=== PATIENT | female | born 1950 | race Caucasian/White ===

== ENCOUNTER 2016-04-28 18:10 | Emergency (ER) | payer MEDICARE, BC ==
[2016-04-28 18:40] VITALS: RESP 16; TEMP 98.5
[2016-04-28] MEDS ORDERED: diphenhydrAMINE 50 MG/ML 1 ML VIAL IVP STA (19:25)
--- NOTE | 2016-04-28 19:48 | ED ---
General Adult HPI - General Chief complaint: Upper Respiratory Infection Stated complaint: congestion Time Seen by Provider: 04/28/16 19:00 Source: patient, EMS, RN notes reviewed Mode of arrival: EMS Limitations: no limitations - History of Present Illness Initial comments: This a 66-year-old female presents emergency department via EMS chief complaint congestion. Patient states her congestion has been so thick in her throat region that she feels like she is gagging. She states that she had severe rhinorrhea noted. Patient states that she's never had symptoms this bad. Patient has trouble coughing up and clearing her secretions secondary to weakness from chemo treatment from endometrial cancer last year. She started receiving chemo last year in which she lost her voice and generalized weakness. 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 Patient states she does not feel like she is a large amount of chest congestion she has had shortness of breath. She denies chest pain, nausea, vomiting diarrhea constipation. Patient is on oxygen home at nighttime. 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 - Related Data Home Medications Medication Instructions Recorded Confirmed ALPRAZolam [Xanax] 0.125 - 0.25 mg PO BID PRN 04/14/15 04/28/16 Cholecalciferol [Vitamin D3] 5,000 unit PO DAILY 04/14/15 04/28/16 Ferrous Sulfate [Feosol] 325 mg PO DAILY 04/14/15 04/28/16 Aspirin EC [Ecotrin Low Dose] 81 mg PO DAILY 04/28/16 04/28/16 Dexlansoprazole [Dexilant] 60 mg PO DAILY 04/28/16 04/28/16 Riluzole 50mg 50 mg PO BID 04/28/16 04/28/16 Venlafaxine HCl [Effexor] 37.5 mg PO DAILY 04/28/16 04/28/16 Previous Rx's Medication Instructions Recorded Loratadine [Claritin] 10 mg PO DAILY #14 tab 04/28/16 Allergies Allergy/AdvReac Type Severity Reaction Status Date / Time paclitaxel Allergy Unknown Verified 04/28/16 19:08 omeprazole AdvReac Unknown Verified 04/28/16 19:08 norco Allergy difficulty Uncoded 06/25/15 12:30 breathing,combative,"tyl is ok" Review of Systems ROS Statement: Those systems with pertinent positive or pertinent negative responses have been documented in the HPI. ROS Other: All systems not noted in ROS Statement are negative. Past Medical History Past Medical History: Cancer Additional Past Medical History / Comment(s): anemia, recent vag. bldg., recently treated for thrush acl uterine ca chemo induced laryngitis History of Any Multi-Drug Resistant Organisms: None Reported Past Surgical History: Hysterectomy Additional Past Surgical History / Comment(s): bartholin's cyst removed Past Anesthesia/Blood Transfusion Reactions: No Reported Reaction Past Psychological History: Anxiety Additional Psychological History / Comment(s): very anxious around drs. & hospitals Smoking Status: Never smoker Past Alcohol Use History: Rare Past Drug Use History: None Reported - Past Family History Sister(s) Family Medical History: Deep Vein Thrombosis (DVT) General Exam Limitations: no limitations General appearance: alert, in no apparent distress Head exam: Present: atraumatic, normocephalic, normal inspection Eye exam: Present: normal appearance, PERRL, EOMI. Absent: scleral icterus, conjunctival injection, periorbital swelling ENT exam: Present: mucous membranes moist, TM's normal bilaterally, normal external ear exam. Absent: normal oropharynx (Phlegm and congestion noted in posterior pharynx) Neck exam: Present: normal inspection, full ROM. Absent: tenderness, meningismus, lymphadenopathy Respiratory exam: Present: normal lung sounds bilaterally. Absent: respiratory distress, wheezes, rales, rhonchi, stridor Cardiovascular Exam: Present: regular rate, normal rhythm, normal heart sounds. Absent: systolic murmur, diastolic murmur, rubs, gallop, clicks GI/Abdominal exam: Present: soft, normal bowel sounds. Absent: distended, tenderness, guarding, rebound, rigid Neurological exam: Present: alert Skin exam: Present: warm, dry, intact, normal color. Absent: rash Course Vital Signs 04/28/16 18:36 Temperature 98.5 F Pulse Rate 88 Respiratory 16 Rate Blood Pressure 135/73 O2 Sat by Pulse 93 L Oximetry Medical Decision Making - Medical Decision Making 4-year-old female presented for congestion. Patient states she feels much improved after Benadryl. Patient states that secretions have dried up. This most likely is rhinitis ALLERGIC rhinitis nature. Patient will be discharged with Claritin return parameters were discussed. - Lab Data Result diagrams: 04/28/16 19:39 04/28/16 19:39 Lab Results 04/28/16 04/28/16 Range/Units 19:39 19:39 WBC 3.9 (3.8-10.6) k/uL RBC 4.23 (3.80-5.40) m/uL Hgb 13.6 (11.4-16.0) gm/dL Hct 40.2 (34.0-46.0) % MCV 95.0 (80.0-100.0) fL MCH 32.0 (25.0-35.0) pg MCHC 33.7 (31.0-37.0) g/dL RDW 13.2 (11.5-15.5) % Plt Count 140 L (150-450) k/uL Neutrophils % 63 % Lymphocytes % 29 % Monocytes % 4 % Eosinophils % 2 % Basophils % 0 % Neutrophils # 2.5 (1.3-7.7) k/uL Lymphocytes # 1.1 (1.0-4.8) k/uL Monocytes # 0.2 (0-1.0) k/uL Eosinophils # 0.1 (0-0.7) k/uL Basophils # 0.0 (0-0.2) k/uL Sodium 142 (137-145) mmol/L Potassium 4.6 (3.5-5.1) mmol/L Chloride 102 (98-107) mmol/L Carbon Dioxide 32 H (22-30) mmol/L Anion Gap 8 mmol/L BUN 17 (7-17) mg/dL Creatinine 0.50 L (0.52-1.04) mg/dL Est GFR (MDRD) Af Amer >60 (>60 ml/min/1.73 sqM) Est GFR (MDRD) Non-Af >60 (>60 ml/min/1.73 sqM) Glucose 102 H (74-99) mg/dL Calcium 10.3 H (8.4-10.2) mg/dL Total Bilirubin 0.7 (0.2-1.3) mg/dL AST 25 (14-36) U/L ALT 37 (9-52) U/L Alkaline Phosphatase 57 (38-126) U/L Total Protein 7.1 (6.3-8.2) g/dL Albumin 4.5 (3.5-5.0) g/dL Disposition Clinical Impression: Rhinitis, Congestion of throat Disposition: HOME SELF-CARE Condition: Stable Instructions: Allergies (ED) Additional Instructions: Please return to the Emergency Department if symptoms worsen or any other concerns. Prescriptions: Loratadine [Claritin] 10 mg PO DAILY #14 tab Time of Disposition: 20:49
[2016-04-28 19:53] LABS: Basophils % (A) 0 %; CH 31.6; CHCM 33.4; Eosinophils # (A) 0.1 k/uL (0-0.7); Eosinophils % (A) 2 %; HCT 40.2 % (34.0-46.0); HDW 2.61; HGB 13.6 gm/dL (11.4-16.0); Luc # (Auto) 0.07; Luc % (Auto) 2; Lymphocytes # (A) 1.1 k/uL (1.0-4.8); Lymphocytes % (A) 29 %; MCHC 33.7 g/dL (31.0-37.0); Mean Platelet Volume 8.4; Monocytes # (A) 0.2 k/uL (0-1.0); Monocytes % (A) 4 %; Neutrophils # (A) 2.5 k/uL (1.3-7.7); Neutrophils % (A) 63 %; RBC 4.23 m/uL (3.80-5.40); RDW 13.2 % (11.5-15.5); WBC 3.9 k/uL (3.8-10.6); WBC (Perox) 3.78
--- NOTE | 2016-04-28 20:05 | XR ---
EXAMINATION TYPE: XR chest 2V DATE OF EXAM: 04/28/2016 8:00 PM COMPARISON: Chest radiograph dated 04/27/2016 HISTORY: Cough, congestion, and sore throat. History of ALS, chemotherapy-induced laryngitis and unsp ecified cancer. TECHNIQUE: Frontal and lateral views of the chest are obtained. FINDINGS: There is no focal air space opacity, pleural effusion, or pneumothorax seen. The cardiac silhouette size is within normal limits. The osseous structures are intact. IMPRESSION: No acute cardiopulmonary process, unchanged from the prior exam.
[2016-04-28 20:08] LABS: ALT 37 U/L (9-52); AST 25 U/L (14-36); Alkaline Phosphatase 57 U/L (38-126); Anion Gap 8 mmol/L; Blood Urea Nitrogen 17 mg/dL (7-17); Calcium 10.3 mg/dL (8.4-10.2); Carbon Dioxide 32 mmol/L (22-30); Chloride 102 mmol/L (98-107); Glucose 102 mg/dL (74-99); Non-African American GFR(MDRD) >60 (>60 ml/min/1.73 sqM); Potassium 4.6 mmol/L (3.5-5.1); Sodium 142 mmol/L (137-145); Total Bilirubin 0.7 mg/dL (0.2-1.3); Total Protein 7.1 g/dL (6.3-8.2)
--- NOTE | 2016-04-28 20:10 | XR ---
EXAMINATION TYPE: XR soft tissue neck DATE OF EXAM: 04/28/2016 8:00 PM COMPARISON: Chest radiograph from earlier on the same day of 04/28/2016. HISTORY: Cough, congestion, sore throat. TECHNIQUE: Frontal and lateral views of the neck soft tissues were obtained. FINDINGS: There is straightening of the usual cervical lordosis. Minimal degenerative changes are josefina reciated of the lower cervical spine displayed is uncovertebral hypertrophy and marginal osteophytes. There is no prevertebral soft tissue swelling noted. Airway is patent. Valleculae and piriform sinus es are well aerated. No radiopaque foreign body is seen. Visualized lung apices are grossly unremarka ble. Visualized paranasal sinuses appear well aerated. Multiple dental fillings are seen. Nasal septu m is midline. IMPRESSION: Patency of the nasopharynx, oropharynx and hypopharynx. No prevertebral soft tissue swell ing. Unremarkable exam.
[2016-04-28 21:17] VITALS: BP 148/74; PULSE 78
== END 2016-04-28 21:16 | disposition home or self-care (01) ==
LOC: EC 18:10
DX: J31.0 Chronic rhinitis (principal); R09.89 Other specified symptoms and signs involving the circulatory and respiratory systems; R53.1 Weakness; Z79.82 Long term (current) use of aspirin; Z79.899 Other long term (current) drug therapy; Z88.5 Allergy status to narcotic agent; Z88.8 Allergy status to other drugs, medicaments and biological substances; F41.9 Anxiety disorder, unspecified; Z85.42 Personal history of malignant neoplasm of other parts of uterus; Z92.21 Personal history of antineoplastic chemotherapy
CPT/HCPCS: 36415; 80053; 85025; 87040; 70360; 71020; 99284; 96374; J1200

== ENCOUNTER 2016-05-21 21:45 | Emergency (ER) | payer MEDICARE, BC ==
[2016-05-21] MEDS ORDERED: LORATADINE 10 MG TAB PO STA (23:52)
--- NOTE | 2016-05-21 23:56 | XR ---
EXAM: XR Chest, 2 Views. CLINICAL HISTORY: Reason: cough TECHNIQUE: Frontal and lateral views of the chest. COMPARISON: No relevant prior studies available. FINDINGS: Lungs: Unremarkable. No consolidation. Pleural space: Unremarkable. No pneumothorax. Heart: Cardiomegaly. Mediastinum: Unremarkable. Bones/joints: Multilevel degenerative changes of the spine. IMPRESSION: Cardiomegaly.
--- NOTE | 2016-05-22 00:34 | ED ---
Recheck HPI - General Chief Complaint: Recheck/Abnormal Lab/Rx Stated Complaint: ALS/Choking Time Seen by Provider: 05/21/16 22:26 Source: patient Mode of arrival: ambulatory Limitations: no limitations - History of Present Illness Initial Comments: This patient is a 66-year-old woman who presents with complaint that she is having difficulty handling her own secretions. She states that she is having difficulty with clearing these by coughing. The patient is currently being worked up for the problem of dysphasia, suspected to have a component of ALS, though possibly as a sequela of cancer therapy. The patient was seen here approximately one month ago for similar difficulty with handling secretions, but has not had much trouble in the interval. The patient believes she is having postnasal drip. The last time she was in a ended up giving her Benadryl and she did go home feeling better. The patient for the most part communicates by writing board. Her did assist in giving some history. The patient does not complain of misha shortness of breath. She is not having chest pain, fever or chills. She does not have the sensation of productive cough, but rather of postnasal drip or possibly saliva. MD Complaint: other -: hour(s) - Related Data Home Medications Medication Instructions Recorded Confirmed ALPRAZolam [Xanax] 0.125 - 0.25 mg PO BID PRN 04/14/15 04/28/16 Cholecalciferol [Vitamin D3] 5,000 unit PO DAILY 04/14/15 04/28/16 Ferrous Sulfate [Feosol] 325 mg PO DAILY 04/14/15 04/28/16 Aspirin EC [Ecotrin Low Dose] 81 mg PO DAILY 04/28/16 04/28/16 Dexlansoprazole [Dexilant] 60 mg PO DAILY 04/28/16 04/28/16 Riluzole 50mg 50 mg PO BID 04/28/16 04/28/16 Venlafaxine HCl [Effexor] 37.5 mg PO DAILY 04/28/16 04/28/16 Previous Rx's Medication Instructions Recorded Loratadine [Claritin] 10 mg PO DAILY #14 tab 04/28/16 Cetirizine HCl [Zyrtec Liquid] 10 mg PO DAILY PRN #200 ml 05/22/16 Glycopyrrolate [Robinul] 1 mg PO BID PRN #20 tablet 05/22/16 Allergies Allergy/AdvReac Type Severity Reaction Status Date / Time paclitaxel Allergy Unknown Verified 05/21/16 22:01 omeprazole AdvReac Unknown Verified 05/21/16 22:01 norco Allergy difficulty Uncoded 05/21/16 22:01 breathing,combative,"tyl is ok" Review of Systems ROS Statement: Those systems with pertinent positive or pertinent negative responses have been documented in the HPI. ROS Other: All systems not noted in ROS Statement are negative. Constitutional: Denies: fever, chills Eyes: Denies: vision change ENT: Reports: other (Postnasal drip). Denies: throat pain Respiratory: Reports: cough. Denies: dyspnea, wheezes, hemoptysis Cardiovascular: Denies: chest pain, palpitations, syncope Gastrointestinal: Denies: abdominal pain, vomiting Musculoskeletal: Denies: back pain Past Medical History Past Medical History: Cancer Additional Past Medical History / Comment(s): anemia, recent vag. bldg., recently treated for thrush acl uterine ca chemo induced laryngitis History of Any Multi-Drug Resistant Organisms: None Reported Past Surgical History: Hysterectomy Additional Past Surgical History / Comment(s): bartholin's cyst removed Past Anesthesia/Blood Transfusion Reactions: No Reported Reaction Past Psychological History: Anxiety Additional Psychological History / Comment(s): very anxious around drs. & hospitals Smoking Status: Never smoker Past Alcohol Use History: Rare Past Drug Use History: None Reported - Past Family History Sister(s) Family Medical History: Deep Vein Thrombosis (DVT) General Exam Limitations: no limitations General appearance: alert Head exam: Present: atraumatic, normocephalic Eye exam: Present: normal appearance. Absent: scleral icterus, conjunctival injection ENT exam: Present: normal oropharynx, mucous membranes moist Neck exam: Present: normal inspection, full ROM Respiratory exam: Present: normal lung sounds bilaterally. Absent: respiratory distress, wheezes, rales, rhonchi, stridor, decreased breath sounds, prolonged expiratory Cardiovascular Exam: Present: regular rate, normal rhythm, normal heart sounds. Absent: systolic murmur, diastolic murmur, rubs, gallop GI/Abdominal exam: Present: soft. Absent: tenderness Extremities exam: Absent: pedal edema Neurological exam: Present: alert. Absent: CN II-XII intact Skin exam: Present: warm, dry, intact, normal color. Absent: rash Course Vital Signs 05/21/16 05/22/16 05/22/16 21:55 00:18 01:59 Temperature 98.8 F 98.3 F 98.5 F Pulse Rate 84 78 90 Respiratory 20 18 18 Rate Blood Pressure 125/74 138/79 135/80 O2 Sat by Pulse 93 L 94 L 93 L Oximetry 05/22/16 02:46 Temperature Pulse Rate Respiratory 20 Rate Blood Pressure O2 Sat by Pulse Oximetry Medical Decision Making - Medical Decision Making Patient is a 66-year-old woman having cough and feeling of choking due to which she believes is postnasal drip. Literature search does show these known problems of ALS. We did try dose of antihistamine that did not appear to make a difference. The patient then had Glycopyrrolate which she states is did give her some relief, and then much better relief after a second dose. She did have a chest x-ray that does not show any evidence of aspiration. The patient is feeling better following therapy and would like to go home. We'll prescribe Glycopyrrolate appear late that she may try if the symptoms return, and she is urged to follow. We discussed return parameters. Disposition Clinical Impression: Rhinorrhea, Sialorrhea Disposition: HOME SELF-CARE Condition: Good Instructions: Rhinosinusitis (ED), Sialorrhea (ED) Prescriptions: Cetirizine HCl [Zyrtec Liquid] 10 mg PO DAILY PRN #200 ml PRN Reason: cough Glycopyrrolate [Robinul] 1 mg PO BID PRN #20 tablet PRN Reason: Cough Referrals: Torey Rudolph MD [Primary Care Provider] - 1-2 days
[2016-05-22] MEDS ORDERED: GLYCOPYRROLATE 0.2 MG/ML 2 ML VIAL IVP STA (00:36)
[2016-05-22] MEDS ORDERED: GLYCOPYRROLATE 0.2 MG/ML 2 ML VIAL IM STA ×2 (00:37→01:50)
[2016-05-22 02:01] VITALS: BP 135/80; PULSE 90; TEMP 98.5
[2016-05-22 02:47] VITALS: RESP 20
== END 2016-05-22 02:30 | disposition home or self-care (01) ==
LOC: EC 21:45
DX: J34.89 Other specified disorders of nose and nasal sinuses (principal); K11.7 Disturbances of salivary secretion; R05 Cough; D64.9 Anemia, unspecified; F41.9 Anxiety disorder, unspecified; Z85.42 Personal history of malignant neoplasm of other parts of uterus; Z79.82 Long term (current) use of aspirin; Z88.8 Allergy status to other drugs, medicaments and biological substances; Z88.5 Allergy status to narcotic agent; Z79.899 Other long term (current) drug therapy
CPT/HCPCS: 71020; 96372; 99283

== ENCOUNTER → 2016-06-24 | Outpatient (CLI) | payer MEDICARE, BC ==
[2016-06-24 13:12] LABS: Blood Urea Nitrogen 18 mg/dL (7-17); Non-African American GFR(MDRD) >60 (>60 ml/min/1.73 sqM)
--- NOTE | 2016-06-24 13:56 | CT ---
EXAMINATION TYPE: CT ChestAbdPelvis w con DATE OF EXAM: 06/24/2016 1:43 PM COMPARISON: Previous study dated 11/16/2015. HISTORY: Patient has no complaints at time of study. Follow up study for known endometrial CA. CT DLP: 663.9 mGycm Automated exposure control for dose reduction was used. TECHNIQUE: Helical acquisition through the abdomen and pelvis was obtained without oral contrast but following the intravenous administration of 100 mL of Omnipaque 300. The data was formatted in the a xial, coronal and sagittal projections. FINDINGS: There is dependent atelectasis in the dependent portions of both lungs. The lungs are other chirinos clear. Enhancing 9.9 x 16.0 mm right paratracheal mass is again identified. Previously this was measured at 10.4 x 15.3 mm. There is no significant axillary, internal mammary, mediastinal or hilar adenopathy. There is no pleu ral or pericardial fluid. The heart is enlarged. Within the abdomen, there is a prominent Chris's lobe of the liver. There is mild fatty infiltration of the liver. The spleen and gallbladder are normal. The right adrenal gland is normal. There are is a 9.4 mm left adrenal mass. Both kidneys demonstrate function and appear morphologically normal. The pancreas is unremarkable. There is no significant retroperitoneal, iliac or inguinal adenopathy. The uterus and ovaries are not visualized. The bladder is unremarkable. There are scattered diverticula within the sigmoid colon. I do not see radiographic evidence of diver ticulitis. Small bowel loops are normal. There is no free fluid and no free air identified. There is hypertrophic spondylosis within the dorsal spine. There is degenerative disc disease and fac et arthropathy L5-S1. No bony destructive lesion is seen. IMPRESSION: 1. STABLE RIGHT PARATRACHEAL MASS. 2. NO DEFINITE EVIDENCE OF RECURRENT OR METASTATIC DISEASE. 3. STABLE 9.4 MM LEFT ADRENAL MASS. 4. DEGENERATIVE CHANGE WITHIN THE SPINE.
== END | disposition home or self-care (01) ==
LOC: RADCTMAIN 12:15
PROVIDERS: ATTEND Internal Medicine Hematology & Oncology
DX: R22.1 Localized swelling, mass and lump, neck (principal); C54.1 Malignant neoplasm of endometrium; E27.8 Other specified disorders of adrenal gland; Z88.8 Allergy status to other drugs, medicaments and biological substances
CPT/HCPCS: 82565; 84520; 71260; 74177; 36415; Q9967

== ENCOUNTER → 2016-06-27 | Outpatient (CLI) | payer MEDICARE, BC ==
--- NOTE | 2016-06-28 11:48 | MM ---
Reason for exam: screening (asymptomatic). Last mammogram was performed 1 year ago. History: Patient is postmenopausal and has history of other cancer at age 65. Family history of breast cancer in maternal aunt. Physical Findings: A clinical breast exam by your physician is recommended on an annual basis and results should be correlated with mammographic findings. MG Screening Mammo w CAD Bilateral CC and MLO view(s) were taken. Prior study comparison: June 25, 2015, bilateral MG 3d screening mammo w/cad. June 26, 2002, bilateral screening mammogram. There are scattered fibroglandular densities. There is no discrete abnormality. No significant changes when compared with prior studies. ASSESSMENT: Negative, BI-RAD 1 RECOMMENDATION: Routine screening mammogram of both breasts in 1 year.
== END | disposition home or self-care (01) ==
LOC: RADMAMWWP 06:56
PROVIDERS: ATTEND Family Medicine
DX: Z12.31 Encounter for screening mammogram for malignant neoplasm of breast (principal)

== ENCOUNTER 2016-11-01 04:08 | Inpatient (IN) | payer MEDICARE, BC ==
[2016-11-01] MEDS ORDERED: IPRATROPIUM-ALBUTEROL 3 ML NEB INHALATION STA (04:12)
[2016-11-01 04:40] LABS: Basophils % (A) 0 %; CH 31.3; CHCM 32.9; Eosinophils # (A) 0.1 k/uL (0-0.7); Eosinophils % (A) 2 %; HCT 44.7 % (34.0-46.0); HDW 2.48; HGB 14.4 gm/dL (11.4-16.0); Luc # (Auto) 0.08; Luc % (Auto) 1; Lymphocytes # (A) 1.4 k/uL (1.0-4.8); Lymphocytes % (A) 26 %; MCH 30.9 pg (25.0-35.0); MCHC 32.3 g/dL (31.0-37.0); MCV 95.7 fL (80.0-100.0); Mean Platelet Volume 8.2; Monocytes # (A) 0.3 k/uL (0-1.0); Monocytes % (A) 5 %; Neutrophils # (A) 3.5 k/uL (1.3-7.7); Neutrophils % (A) 66 %; RBC 4.67 m/uL (3.80-5.40); RDW 13.8 % (11.5-15.5); WBC 5.3 k/uL (3.8-10.6); WBC (Perox) 5.59
[2016-11-01 04:44] LABS: ALT 35 U/L (9-52); AST 28 U/L (14-36); Alkaline Phosphatase 60 U/L (38-126); Blood Urea Nitrogen 21 mg/dL (7-17); Calcium 10.1 mg/dL (8.4-10.2); Chloride 97 mmol/L (98-107); Glucose 119 mg/dL (74-99); Magnesium 1.9 mg/dL (1.6-2.3); Non-African American GFR(MDRD) >60 (>60 ml/min/1.73 sqM); Sodium 143 mmol/L (137-145); Total Bilirubin 0.5 mg/dL (0.2-1.3); Total Protein 6.4 g/dL (6.3-8.2)
[2016-11-01] MEDS: SODIUM CHLORIDE 0.9% 1,000 ML IV STA ×2 (04:46→06:56)
[2016-11-01 04:47] LABS: Partial Thromboplastin Time 22.4 sec (22.0-30.0)
--- NOTE | 2016-11-01 04:49 | ED ---
General Adult HPI - General Stated complaint: BRINDA Time Seen by Provider: 11/01/16 04:12 Source: patient, EMS, RN notes reviewed, old records reviewed Mode of arrival: EMS Limitations: language barrier - History of Present Illness Initial comments: This is a 58-year-old female date ER for evaluation. Patient presents today for evaluation regarding shortness of breath. Patient has is history of ALS, is on hospice. Patient states that she is having difficulty breathing, difficulty clearing secretions. Patient does do her own suctioning. No known fevers. No pain. At this time upon arrival to emergency room patient states her symptoms are improved - Related Data Home Medications Medication Instructions Recorded Confirmed Aspirin EC [Ecotrin Low Dose] 81 mg PO DAILY 04/28/16 11/01/16 Venlafaxine HCl [Effexor] 37.5 mg PO DAILY 04/28/16 11/01/16 Previous Rx's Medication Instructions Recorded Amoxic-Pot Clav 875-125Mg 1 each PO DAILY #5 tab 11/02/16 [Augmentin 875-125] LORazepam [Ativan] 1 mg PO Q4H #30 tab 11/02/16 MORPHINE ORAL SOLN 20mg/mL 0.25 ml PEG/G-TUBE Q3HR PRN #1 11/02/16 [Roxanol Oral Soln Conc 20MG/ML] Scopolamine 1.5MG/72Hr Patch 1 patch TRANSDERM Q72H #10 patch 11/02/16 [TransDerm Scop] Allergies Allergy/AdvReac Type Severity Reaction Status Date / Time hydrocodone [From [place]] Allergy Unknown Verified 11/01/16 07:16 omeprazole Allergy Unknown Verified 11/01/16 07:16 paclitaxel Allergy Unknown Verified 11/01/16 07:15 Review of Systems ROS Statement: Those systems with pertinent positive or pertinent negative responses have been documented in the HPI. ROS Other: All systems not noted in ROS Statement are negative. Past Medical History Past Medical History: Cancer Additional Past Medical History / Comment(s): anemia, recent vag. bldg., recently treated for thrush acl uterine ca chemo induced laryngitis , ALS History of Any Multi-Drug Resistant Organisms: None Reported Past Surgical History: Hysterectomy Additional Past Surgical History / Comment(s): bartholin's cyst removed Past Anesthesia/Blood Transfusion Reactions: No Reported Reaction Past Psychological History: Anxiety Smoking Status: Never smoker Past Alcohol Use History: Rare Past Drug Use History: None Reported - Past Family History Sister(s) Family Medical History: Deep Vein Thrombosis (DVT) Mother Family Medical History: No Reported History Additional Family Medical History / Comment(s): Mother is healthy and is 87yrs old. Father Family Medical History: Coronary Artery Disease (CAD), CVA/TIA, Musculoskeletal Disorder, Neurologic Disorder Additional Family Medical History / Comment(s): Father had parkinson's, 4 vessel CABG, CVA. General Exam Limitations: language barrier General appearance: alert, in no apparent distress, anxious Head exam: Present: atraumatic, normocephalic, normal inspection Eye exam: Present: normal appearance, PERRL, EOMI. Absent: scleral icterus, conjunctival injection, periorbital swelling ENT exam: Present: normal exam, mucous membranes moist Neck exam: Present: normal inspection. Absent: tenderness, meningismus, lymphadenopathy Respiratory exam: Present: normal lung sounds bilaterally. Absent: respiratory distress, wheezes, rales, rhonchi, stridor Cardiovascular Exam: Present: regular rate, normal rhythm, normal heart sounds. Absent: systolic murmur, diastolic murmur, rubs, gallop, clicks GI/Abdominal exam: Present: soft, normal bowel sounds. Absent: distended, tenderness, guarding, rebound, rigid Extremities exam: Present: normal inspection, full ROM, normal capillary refill. Absent: tenderness, pedal edema, joint swelling, calf tenderness Back exam: Present: normal inspection Neurological exam: Present: alert, oriented X3, CN II-XII intact Psychiatric exam: Present: normal affect, normal mood Skin exam: Present: warm, dry, intact, normal color. Absent: rash Course Vital Signs 11/01/16 11/01/16 11/01/16 04:10 04:30 04:44 Temperature 97.7 F Pulse Rate 102 H 84 85 Respiratory 18 Rate Blood Pressure 140/72 O2 Sat by Pulse 96 Oximetry 11/01/16 11/01/16 05:21 06:30 Temperature 98.3 F Pulse Rate 87 88 Respiratory 20 20 Rate Blood Pressure 144/70 135/64 O2 Sat by Pulse 100 97 Oximetry - Reevaluation(s) Reevaluation #1: Patient does have improvement with breathing control, respiratory was able to provide patient with relief with deep suctioning EKG Findings - EKG Comments: EKG Findings:: EKG shows normal sinus rate of 84, FL 140, QRS 76, QTC 420 Medical Decision Making - Medical Decision Making 66 female here for evaluation shortness of breath and cough, history of ALS, patient does have positive pneumonia likely aspiration, patient placed on IV antibiotics were mid-upper breathing treatments, monitoring of cardiopulmonary s - Lab Data Result diagrams: 11/01/16 04:14 11/01/16 04:14 Lab Results 11/01/16 11/01/16 11/01/16 Range/Units 04:14 04:14 04:14 WBC 5.3 (3.8-10.6) k/uL RBC 4.67 (3.80-5.40) m/uL Hgb 14.4 (11.4-16.0) gm/dL Hct 44.7 (34.0-46.0) % MCV 95.7 (80.0-100.0) fL MCH 30.9 (25.0-35.0) pg MCHC 32.3 (31.0-37.0) g/dL RDW 13.8 (11.5-15.5) % Plt Count 139 L (150-450) k/uL Neutrophils % 66 % Lymphocytes % 26 % Monocytes % 5 % Eosinophils % 2 % Basophils % 0 % Neutrophils # 3.5 (1.3-7.7) k/uL Lymphocytes # 1.4 (1.0-4.8) k/uL Monocytes # 0.3 (0-1.0) k/uL Eosinophils # 0.1 (0-0.7) k/uL Basophils # 0.0 (0-0.2) k/uL PT (9.0-12.0) sec INR (<1.2) APTT (22.0-30.0) sec Sodium 143 (137-145) mmol/L Potassium 5.0 (3.5-5.1) mmol/L Chloride 97 L (98-107) mmol/L Carbon Dioxide 40 H* (22-30) mmol/L Anion Gap 6 mmol/L BUN 21 H (7-17) mg/dL Creatinine 0.41 L (0.52-1.04) mg/dL Est GFR (MDRD) Af Amer >60 (>60 ml/min/1.73 sqM) Est GFR (MDRD) Non-Af >60 (>60 ml/min/1.73 sqM) Glucose 119 H (74-99) mg/dL Calcium 10.1 (8.4-10.2) mg/dL Magnesium 1.9 (1.6-2.3) mg/dL Total Bilirubin 0.5 (0.2-1.3) mg/dL AST 28 (14-36) U/L ALT 35 (9-52) U/L Alkaline Phosphatase 60 (38-126) U/L Total Creatine Kinase 20 L (30-135) U/L CK-MB (CK-2) 2.2 (0.0-2.4) ng/mL CK-MB (CK-2) Rel Index 11.0 Troponin I <0.012 (0.000-0.034) ng/mL NT-Pro-B Natriuret Pep pg/mL Total Protein 6.4 (6.3-8.2) g/dL Albumin 4.0 (3.5-5.0) g/dL 11/01/16 11/01/16 Range/Units 04:14 04:14 WBC (3.8-10.6) k/uL RBC (3.80-5.40) m/uL Hgb (11.4-16.0) gm/dL Hct (34.0-46.0) % MCV (80.0-100.0) fL MCH (25.0-35.0) pg MCHC (31.0-37.0) g/dL RDW (11.5-15.5) % Plt Count (150-450) k/uL Neutrophils % % Lymphocytes % % Monocytes % % Eosinophils % % Basophils % % Neutrophils # (1.3-7.7) k/uL Lymphocytes # (1.0-4.8) k/uL Monocytes # (0-1.0) k/uL Eosinophils # (0-0.7) k/uL Basophils # (0-0.2) k/uL PT 10.0 (9.0-12.0) sec INR 1.0 (<1.2) APTT 22.4 (22.0-30.0) sec Sodium (137-145) mmol/L Potassium (3.5-5.1) mmol/L Chloride (98-107) mmol/L Carbon Dioxide (22-30) mmol/L Anion Gap mmol/L BUN (7-17) mg/dL Creatinine (0.52-1.04) mg/dL Est GFR (MDRD) Af Amer (>60 ml/min/1.73 sqM) Est GFR (MDRD) Non-Af (>60 ml/min/1.73 sqM) Glucose (74-99) mg/dL Calcium (8.4-10.2) mg/dL Magnesium (1.6-2.3) mg/dL Total Bilirubin (0.2-1.3) mg/dL AST (14-36) U/L ALT (9-52) U/L Alkaline Phosphatase (38-126) U/L Total Creatine Kinase (30-135) U/L CK-MB (CK-2) (0.0-2.4) ng/mL CK-MB (CK-2) Rel Index Troponin I (0.000-0.034) ng/mL NT-Pro-B Natriuret Pep 37 pg/mL Total Protein (6.3-8.2) g/dL Albumin (3.5-5.0) g/dL - Radiology Data Radiology results: report reviewed (Chest x-ray is positive for pneumonia), image reviewed Disposition Clinical Impression: Nosocomial pneumonia Disposition: ADMITTED IP TO THIS [facility] Condition: Fair
[2016-11-01 04:50] LABS: Anion Gap 6 mmol/L
[2016-11-01 04:56] LABS: Carbon Dioxide 40 mmol/L (22-30); Creatine Kinase 20 U/L (30-135)
[2016-11-01 05:09] LABS: Creatine Kinase MB 2.2 ng/mL (0.0-2.4); Troponin I <0.012 ng/mL (0.000-0.034)
--- NOTE | 2016-11-01 06:10 | XR ---
PROCEDURE: FILM CXR 2 VIEWS HISTORY: 66-year-old female with difficulty breathing. COMPARISON: Chest radiograph 05/21/2016 TECHNIQUE: Frontal and lateral views of the chest were obtained. FINDINGS: Limited by positioning. Mildly enlarged, but stable, cardiac silhouette. Stable mediastinal silhouette. Left lower lobe consolidation, may be due to pneumonia in the appropriate clinical setting. No evidence of effusion or pneumothorax. Multilevel degenerative changes in the spine. IMPRESSION: Mildly enlarged, but stable, cardiac silhouette. Left lower lobe consolidation, may be due to pneumonia in the appropriate clinical setting. Followup to clearing.
[2016-11-01] MEDS ORDERED: PNEUMONIA PROTOCOL UTILIZED 1 EACH MISC PO PRN (06:35)
[2016-11-01] MEDS ORDERED: LEVOFLOXACIN 750MG-D5W PMX 750 MG in DEXTROSE/WATER 1 150ML.BAG IVPB STA (06:35)
[2016-11-01] MEDS ORDERED: PIPERACILLIN-TAZOBACTAM 3.375 GM in DEXTROSE/WATER 1 50ML.BAG IVPB STA (06:35)
[2016-11-01] MEDS: SODIUM CHLORIDE 0.9% 1,000 ML IV SCH ×2 (06:56→17:13)
[2016-11-01] MEDS: IPRATROPIUM-ALBUTEROL 3 ML NEB INHALATION SCH ×4 (08:57→19:58)
[2016-11-01] MEDS ORDERED: ENOXAPARIN 40 MG/0.4 ML SYRINGE SQ SCH ×2 (09:00→09:15)
[2016-11-01 11:08] VITALS: BMI 24.0
[2016-11-01 11:30] LABS: ABG Base Excess 14.6 mmol/L; ABG HCO3 41 mmol/L (21-25); ABG PCO2 76 mmHg (35-45); ABG PH 7.35 (7.35-7.45); ABG PO2 128 mmHg (83-108); ABG TCO2 43 mmol/L (19-24)
[2016-11-01] MEDS: VENLAFAXINE HCL 37.5 MG TAB PO SCH (12:34)
--- NOTE | 2016-11-01 13:36 | P.CNPUL ---
History of Present Illness Consult date: 11/01/16 Reason for consult: dyspnea, pneumonia History of present illness: A 66-year-old female patient with established diagnoses of amyotrophic lateral sclerosis whereas been maintained on a AVAPS respirator over the past 6 months. Apparently the patient's condition has been gradually getting worse and she has developed progressive no muscular weakness. Currently she has a very weak cough. She is unable to ambulate. She is unable to talk. Her swallowing is also suspected and the patient is being fed via PEG tube. The patient was brought to the burst department yesterday having increased shortness of breath. She was also having some increased lethargy and weakness and she did not have any fever. The chest x-ray was done and showed possibility of a left lower lobe pneumonia. She does not have any witnessed aspiration. She was started on IV antibiotics. A pulmonary consultation was also requested. She is awake and alert. She cannot talk. As such no further information can be obtained from her. My understanding is that the patient was in hospice at one point. I ordered a blood gas and I show evidence of compensated chronic hypercapnic respiratory failure with a pH of 7.35 and a pCO2 of 76 and pO2 of 128 and this was done and FiO2 of 32%. No leukocytosis. Review of Systems Constitutional: Reports weakness Eyes: denies blurred vision, denies bulging eye, denies decreased vision Ears: deny: decreased hearing Ears, nose, mouth and throat: Reports as per HPI Cardiovascular: Reports as per HPI, Reports shortness of breath Respiratory: Reports dyspnea, Reports respiratory infections Gastrointestinal: Reports as per HPI Genitourinary: Reports as per HPI Musculoskeletal: Reports gait dysfunction Musculoskeletal: absent: ankle pain, ankle stiffness, ankle swelling Integumentary: Denies pruritus, Denies rash Neurological: Reports as per HPI, Reports gait dysfunction, Reports lack of coordination, Reports motor disturbance, Reports spasticity, Reports weakness Psychiatric: Denies anxiety, Denies depression Endocrine: Denies fatigue, Denies weight change Hematologic/Lymphatic: Reports as per HPI Allergic/Immunologic: Reports as per HPI Past Medical History Past Medical History: Cancer Additional Past Medical History / Comment(s): ALS, POST MENOPAUSAL BLEEDING- ENDOMETRIAL CANCER WITH CHEMO/RADIATION A YEAR AGO-DONE AT [facility], HAS PEG TUBE-ABLE TO EAT ALITTLE-FINELY PUREED FOOD/PILLS CRUSHED OR IN LIQUID FORM/SHE DOES NOT DRINK FLUIDS AT ALL-SWALLOW DIFFICULTIES, RECENT HOSPICE-USING [facility], DIVERTICULAR DX, MILD GASTRITIS, PT ALWAYS FEELS VERY WARM. History of Any Multi-Drug Resistant Organisms: None Reported Past Surgical History: Hysterectomy Additional Past Surgical History / Comment(s): bartholin's cyst removed, EGD/ COLONOSCOPY, D&C/HYSTEROSCOPY, PEG TUBE Past Anesthesia/Blood Transfusion Reactions: No Reported Reaction Additional Past Anesthesia/Blood Transfusion Reaction / Comment(s): PT IS SLOW TO AWAKEN AFTER ANESTHESIA Smoking Status: Never smoker - Past Family History Sister(s) Family Medical History: Deep Vein Thrombosis (DVT) Mother Family Medical History: No Reported History Additional Family Medical History / Comment(s): Mother is healthy and is 87yrs old. Father Family Medical History: Coronary Artery Disease (CAD), CVA/TIA, Musculoskeletal Disorder, Neurologic Disorder Additional Family Medical History / Comment(s): Father had parkinson's, 4 vessel CABG, CVA. Medications and Allergies Home Medications Medication Instructions Recorded Confirmed Type Aspirin EC [Ecotrin Low Dose] 81 mg PO DAILY 04/28/16 11/01/16 History Venlafaxine HCl [Effexor] 37.5 mg PO DAILY 04/28/16 11/01/16 History MORPHINE ORAL SOLN 20mg/mL 0.25 ml PEG/G-TUBE Q3HR PRN 11/01/16 11/01/16 History [Roxanol Oral Soln Conc 20MG/ML] Allergies Allergy/AdvReac Type Severity Reaction Status Date / Time hydrocodone [From [place]] Allergy Unknown Verified 11/01/16 07:16 omeprazole Allergy Unknown Verified 11/01/16 07:16 paclitaxel Allergy Unknown Verified 11/01/16 07:15 Physical Exam Vitals: Vital Signs Temp Pulse Pulse Resp BP BP Pulse Ox 11/01/16 12:14 92 11/01/16 12:03 92 11/01/16 09:02 88 98 11/01/16 08:00 98.0 F 91 18 141/74 97 11/01/16 06:30 98.3 F 88 20 135/64 97 11/01/16 05:21 87 20 144/70 100 11/01/16 04:44 85 11/01/16 04:30 84 11/01/16 04:10 97.7 F 102 H 18 140/72 96 Intake and Output 10/31/16 11/01/16 11/01/16 22:59 06:59 14:59 Other: Weight 61.689 kg 61.689 kg Patient Weight 11/02/16 06:59 Weight 61.689 kg The patient is awake and alert. She is unable to talk and she is nonverbal at this point. She is quite cachectic and weak and there is evidence of muscle atrophy both in upper and lower extremities. She also has some degree of spasticity.Head exam was generally normal. There was no scleral icterus or corneal arcus. Mucous membranes were moist.Neck was supple and without jugular venous distension, thyromegaly, or carotid bruits. Carotids were easily palpable bilaterally. There was no adenopathy. Lung sounds are diminished bilaterally especially lung bases. There is barely any breath sounds in the lung bases. No wheezes or rhonchi. Few rales in the lung bases.Cardiac exam revealed the PMI to be normally situated and sized. The rhythm was regular and no extrasystoles were noted during several minutes of auscultation. The first and second heart sounds were normal and physiologic splitting of the second heart sound was noted. There were no murmurs, rubs, clicks, or gallops.Abdominal exam revealed normal bowel sounds. The abdomen was soft, non- tender, and without masses, organomegaly, or appreciable enlargement of the abdominal aorta. Active site is clean and dry and intact. Extremities are nonswollen. There is significant atrophy and there is physical examination and spasticity. This is all related to her ALS. Neurologically, the patient has motor weakness both in upper and lower extremity to the point where she has significantly lost of motor power. She has spasticity. She has fasciculation. The cough is weak and nearly absent. Gag is weak. Her cranial nerves show no major disturbances. Skin exam is within normal limits and there is no open wounds or ulceration. Skeletal exam shows no deformities or any active arthritis. Results - Laboratory Findings CBC and BMP: 11/01/16 04:14 11/01/16 04:14 ABG ABG pH 7.35 (7.35-7.45) 11/01/16 11:20 ABG pCO2 76 mmHg (35-45) H* 11/01/16 11:20 ABG pO2 128 mmHg (83-108) H 11/01/16 11:20 ABG O2 Saturation 99.0 % (94-97) H 11/01/16 11:20 PT/INR, D-dimer PT 10.0 sec (9.0-12.0) 11/01/16 04:14 INR 1.0 (<1.2) 11/01/16 04:14 Abnormal lab findings: Abnormal Labs 11/01/16 11/01/16 11/01/16 04:14 04:14 04:14 Plt Count 139 L ABG pCO2 ABG pO2 ABG HCO3 ABG Total CO2 ABG O2 Saturation Chloride 97 L Carbon Dioxide 40 H* BUN 21 H Creatinine 0.41 L Glucose 119 H Total Creatine Kinase 20 L 11/01/16 11:20 Plt Count ABG pCO2 76 H* ABG pO2 128 H ABG HCO3 41 H* ABG Total CO2 43 H ABG O2 Saturation 99.0 H Chloride Carbon Dioxide BUN Creatinine Glucose Total Creatine Kinase - Diagnostic Findings Chest x-ray: image reviewed Assessment and Plan Plan: Assessment 1 amyotrophic lateral sclerosis with severe neuromuscular weakness and difficulties with breathing. The patient has been maintained on a AVAPS ventilator over the past 6 months. 2 chronic hypercapnic respiratory failure, well compensated based on the blood gas 3 chronic hypoxic respiratory failure secondary to above 4 left lower lobe pneumonia, possible aspiration 5 severe neuromuscular weakness, bedridden and the patient was being considered for hospice 6 enteral feeding for nutritional support through a PEG tube 7 very weak/absent cough and mechanism 8 diffuse muscle atrophy along with spasticity and fasciculations 9 history of uterine cancer Plan This patient is a very poor prognosis. She is currently being treated for a pneumonia which could be potentially of an aspiration type. Agree on the current antibiotic coverage which includes a combination of Zosyn and Levaquin. Meanwhile, she will need aggressive pulmonary toileting. Her cough is weak. She may benefit from breast therapy if she respiratory secretions become an ongoing issue. Continue the use of her AVAPS unit. Continue the DuoNeb neb last treatment [id number]. Consider enrolling this patient back and hospice again. Based on this further discussion will be done with the patient' s family and immediate relatives.
[2016-11-01] MEDS: PIPERACILLIN-TAZOBACTAM 3.375 GM in DEXTROSE/WATER 1 50ML.BAG IVPB SCH (17:12)
[2016-11-01] MEDS: MORPHINE ORAL SOLN 10 MG/5 ML CUP PEG/G-TUBE PRN (20:35)
--- NOTE | 2016-11-01 22:33 | HP ---
HISTORY AND PHYSICAL DATE OF ADMISSION: 11/01/2016 PRESENTING COMPLAINT: Choking. HISTORY OF PRESENTING COMPLAINT: This is a 66-year-old patient who used to follow with Dr. Rudolph and is now following with Hospice ( ) Dr. Kline. History is obtained from the and daughter at the bedside. The patient is followed by a specialist out of the [facility]. Patient has a diagnosis of amyotrophic lateral sclerosis (ALS). She has been just put under hospice called [facility]. The patient has PEG tube feeding and can sometimes eat a little bit of pureed diet. Patient does get bolus feeding 3 to 4 times a day. The patient's other stable conditions include diverticulosis, anxiety, endometrial cancer treated with chemo and radiation in the past. The patient is pretty much bedbound. She is able to recognize family and communicate a bit. The patient is not really able to speak as a side effect of chemotherapy. Earlier this morning patient started choking, and her decided to call 911. The patient was brought in here. Slightly short of breath. Chest x-ray confirmed what appears now to be aspiration pneumonia. She was started on antibiotics for the same. REVIEW OF SYSTEMS: Difficult to obtain, as the patient really does not speak. PAST MEDICAL HISTORY: 1. Amyotrophic lateral sclerosis. 2. Endometrial cancer. 3. Severe medical debility. 4. Diverticulosis. 5. Anxiety. 6. PEG tube feeding. 7. Dysphasia and dysarthria. PAST SURGICAL HISTORY: 1. Hysterectomy. 2. Bartholin's cyst. 3. D&C. 4. Hysteroscopy. 5. PEG tube. SOCIAL HISTORY: The patient lives at home with family. No history of smoking. Alcohol rarely. She is under hospice care with [facility]. FAMILY HISTORY: DVT. HOME MEDICATIONS: 1. Effexor 37.5 mg p.o. daily. 2. Roxanol 25 q.3 p.r.n. 3. Aspirin 81 mg a day. ALLERGIES: 1. HYDROCODONE. 2. OMEPRAZOLE. 3. PACLITAXEL. PHYSICAL EXAMINATION: VITAL SIGNS ON PRESENTATION: Temperature 97.7, pulse 102, respiratory rate 18, blood pressure 140/72, pulse ox 96% on room air. GENERAL APPEARANCE: Tired-appearing. Sitting up, awake. EYES: Pupils equal. Conjunctivae normal. HEENT: Oral cavity unable to assess. NECK: JVD not raised. Mass not palpable. RESPIRATORY: Effort normal. LUNGS: Diminished breath sounds at the bases. CARDIOVASCULAR: First and second sounds normal. No edema. Abdomen is soft, nontender. PEG tube in place. Liver and spleen not palpable. LYMPHATICS: No lymph node palpable in neck or axillae. PSYCHIATRY: Unable to assess; patient does not answer. NEUROLOGICAL: Pupils equal. No facial asymmetry. Patient does seem to move all the limbs. INVESTIGATIONS: White count 5.3, hemoglobin 14.4. Blood gas showed pH of 7.35, pCO2 of 76, PO2 of 128. ( ) BUN 21, creatinine 0.41. Chest x-ray shows left lower infiltrate. ASSESSMENT: 1. Left lower lobe infiltrate, likely aspiration. Could be of the gastric contents. Present on admission. 2. Chronic hypercapnic respiratory failure. 3. Chronic hypoxic respiratory failure, on home oxygen. 4. Chronic medical debility. 5. Amyotrophic lateral sclerosis, advanced. 6. Colonic diverticulosis. 7. Anxiety not otherwise specified. 8. Chronic dysarthria. PLAN: I had a lengthy talk with the patient and daughter. They do understand the meaning of hospice now. At the present time, patient with symptom control. Will be given IV antibiotics, a short course, and if things are stable, patient could probably even be discharged by tomorrow, depending on how she does. In the meantime, dietitian should be consulted to start the patient back on the bolus feeding she was receiving at home. Overall prognosis is guarded. MMODL / IJN: [id number] /
[2016-11-02] MEDS: PIPERACILLIN-TAZOBACTAM 3.375 GM in DEXTROSE/WATER 1 50ML.BAG IVPB SCH ×2 (00:12→09:37)
[2016-11-02] MEDS: MORPHINE ORAL SOLN 10 MG/5 ML CUP PEG/G-TUBE PRN ×3 (00:39→08:46)
[2016-11-02] MEDS: SODIUM CHLORIDE 0.9% 1,000 ML IV SCH (03:12)
[2016-11-02] MEDS: IPRATROPIUM-ALBUTEROL 3 ML NEB INHALATION SCH ×2 (07:21→11:15)
[2016-11-02] MEDS ORDERED: LEVOFLOXACIN 750MG-D5W PMX 750 MG in DEXTROSE/WATER 1 150ML.BAG IVPB SCH (08:00)
[2016-11-02 08:03] VITALS: BP 131/82; RESP 20; TEMP 97.2
[2016-11-02] MEDS: VENLAFAXINE HCL 37.5 MG TAB PO SCH (08:04)
[2016-11-02] MEDS ORDERED: ASPIRIN 81 MG PO SCH (09:00)
--- NOTE | 2016-11-02 10:03 | XR ---
EXAMINATION TYPE: XR chest 1V portable DATE OF EXAM: 11/02/2016 HISTORY: Shortness of breath. COMPARISON: 11/01/2016 TECHNIQUE: Single view of the chest is submitted. FINDINGS: Demonstrated are scattered senescent parenchymal change. There is no evidence for focal infiltrate. The heart is stable. Hilar and mediastinal structures are within normal limits. Degenerative changes are seen of the dorsal spine. IMPRESSION: 1. Chronic changes without evidence for acute pulmonary disease.
[2016-11-02 11:27] VITALS: PULSE 84
--- NOTE | 2016-11-02 11:56 | CDI ---
In responding to this query, please exercise your independent professional judgment. The [facility] Coding Staff and Clinical Documentation Specialists appreciate your assistance in clarifying documentation, maintaining compliance with coding guidelines, accurately documenting patients condition and capturing severity of illness. The fact that a question is asked does not imply that any particular answer is desired or expected. Communication forms are a method of clarifying documentation and are not made part of the Legal Health Record. Thank you in advance for your clarification. Last Revision, December 2014 Evonne Guzman [address] [facility] [place] [address] Documentation Clarification Form Date: 11/02/2016 11:22:00 AM From: Britta Bustillo RN, CDS Admit Date: 11/01/2016 6:35:00 AM Patient Name: Suri Barclay Visit Number: [id number] Dr. Akbar Mandujano, 58 year old patient with history of amyotrophic lateral sclerosis with severe neuromuscular weakness and difficulties breathing. Patient is bedridden, is fed via PEG tube. Patient admitted for Pneumonia with possible aspiration. Patient history/risk factors: ALS, Anemia, uses AVAPS respirator, bedridden, Clinical Indicators: 2 person assist, log roll, total assistance with ADL, VS: 97.7 102 18 140/72 96 Treatment: Complete care provided by staff, Falls precautions, Enteral tube feeding, Hospice consult In your professional opinion, can you please clarify? - Functional Quadriplegia - Other Quadriplegia (please specify) - Other - Unable to determine Please document in your progress notes and discharge summary in order to capture severity of illness and risk of mortality. Include clinical findings that support your diagnosis. FYI: Press F11 to launch patient chart. Thank you. [place]
--- NOTE | 2016-11-03 08:36 | DS ---
DISCHARGE SUMMARY DATE OF ADMISSION: 11/01/2016 DATE OF DISCHARGE: 11/03/2016 FINAL DIAGNOSIS: 1. Aspiration pneumonia left lower lobe. Could be the gastric contents. 2. Chronic hypercapnic respiratory failure. 3. Chronic hypoxic respiratory failure on home oxygen. 4. Chronic medical debility. 5. 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 6. Colonic diverticulosis. 7. Anxiety, not otherwise specified. 8. Chronic dysarthria. HOSPITAL COURSE: This is a patient who hospice, started choking and what appears to be aspiration pneumonia. Was put on IV antibiotics to which she responded well. Today patient is back to her baseline. Looks like afebrile, normal white count. and daughter present at bedside. Not really very well involved in the care. Patient is tolerating twice a day feeding at her baseline. They understand the overall prognosis is guarded. Patient will be switched over to oral antibiotics to the PEG tube. Patient does eat a small amount through the mouth. DISCHARGE MEDICATIONS: 1. Aspirin 81 mg a day. 2. Effexor 37.5 p.o. daily. 3. Ativan 1 mg p.o. q.4. 4. Augmentin 875 daily, 5 tablets. 5. Roxanol 20 mg 0.25 mL q. 3 p.r.n. for pain. 6. Scopolamine patch q. 72 hours. DISPOSITION: Home with hospice Hospice: Follow up with the Hospice physician in 3 days. PHYSICAL EXAMINATION: LUNGS: Decreased breath sounds. Patient able to follow simple commands. Moving all limbs. Discharge planning more than 35 minutes. MMODL / IJN: [id number] /
[2016-11-03] MEDS ORDERED: AMOXIC-POT CLAV 875-125MG 1 EACH TAB PO SCH (09:00)
== END 2016-11-02 12:05 | disposition hospice, home (50) | DRG 178 ==
LOC: EC 04:08 → 4MS4W 06:35
PROVIDERS: ADMIT Hospitalist; ATTEND Hospitalist
PROC: 3E0G76Z Introduction of Nutritional Substance into Upper GI, Via Natural or Artificial Opening (ICD-10-PCS; principal; 2016-11-01)
DX: J69.0 Pneumonitis due to inhalation of food and vomit (principal); J96.12 Chronic respiratory failure with hypercapnia; G12.21 Amyotrophic lateral sclerosis; J96.11 Chronic respiratory failure with hypoxia; R64 Cachexia; Z99.81 Dependence on supplemental oxygen; Z66 Do not resuscitate; Z51.5 Encounter for palliative care; Z93.1 Gastrostomy status; K29.70 Gastritis, unspecified, without bleeding; R25.2 Cramp and spasm; K57.30 Diverticulosis of large intestine without perforation or abscess without bleeding; F41.9 Anxiety disorder, unspecified; R53.1 Weakness; R47.1 Dysarthria and anarthria; R25.3 Fasciculation; G70.9 Myoneural disorder, unspecified; R47.02 Dysphasia; Z90.710 Acquired absence of both cervix and uterus; Z86.19 Personal history of other infectious and parasitic diseases; Z87.42 Personal history of other diseases of the female genital tract; Z82.3 Family history of stroke; Z82.0 Family history of epilepsy and other diseases of the nervous system; Z71.3 Dietary counseling and surveillance; Z82.49 Family history of ischemic heart disease and other diseases of the circulatory system; Z79.899 Other long term (current) drug therapy; Z79.82 Long term (current) use of aspirin; Z85.42 Personal history of malignant neoplasm of other parts of uterus; Z92.21 Personal history of antineoplastic chemotherapy; Z92.3 Personal history of irradiation; Z79.891 Long term (current) use of opiate analgesic; Z88.5 Allergy status to narcotic agent; Z88.8 Allergy status to other drugs, medicaments and biological substances; Z74.01 Bed confinement status; Z86.2 Personal history of diseases of the blood and blood-forming organs and certain disorders involving the immune mechanism
CPT/HCPCS: 36415; 36600; 71010; 71020; 80053; 82550; 82553; 82805; 83735; 83880; 84484; 85025; 85610; 85730; 87040; 93005; 94640; 94760; 96360; 99285